=== PATIENT | male | born 1940 | race Caucasian/White ===

== ENCOUNTER → 2017-05-31 | Outpatient (CLI) | payer OTHER, MEDICARE ==
[~2017-05-31] VITALS: Ht 172.7 cm; Wt 72.6 kg
[~2017-05-31] MED LIST: AMLODIPINE BESYL5 MG PO; ASPIR 8181 M1 PO; ATORVASTATIN CA40 MG PO; COZAAR50 MG PO
== END | disposition home or self-care (01) ==
LOC: AMB 08:50
PROC: 0DB38ZZ Excision of Lower Esophagus, Via Natural or Artificial Opening Endoscopic (ICD-10-PCS; principal; 2017-05-31)
DX: C15.5 Malignant neoplasm of lower third of esophagus (principal); K21.9 Gastro-esophageal reflux disease without esophagitis; Z87.891 Personal history of nicotine dependence; E78.5 Hyperlipidemia, unspecified; I10 Essential (primary) hypertension; R01.1 Cardiac murmur, unspecified; N28.1 Cyst of kidney, acquired; Z79.82 Long term (current) use of aspirin
CPT/HCPCS: 88305

== ENCOUNTER → 2017-06-05 | Outpatient (CLI) | payer OTHER, MEDICARE ==
[~2017-06-05] VITALS: Ht 172.7 cm; Wt 72.6 kg
== END | disposition home or self-care (01) ==
LOC: AMB 10:13
DX: C15.9 Malignant neoplasm of esophagus, unspecified (principal); K76.0 Fatty (change of) liver, not elsewhere classified; N28.1 Cyst of kidney, acquired; I25.10 Atherosclerotic heart disease of native coronary artery without angina pectoris; K57.30 Diverticulosis of large intestine without perforation or abscess without bleeding; N40.0 Benign prostatic hyperplasia without lower urinary tract symptoms; R59.0 Localized enlarged lymph nodes; K80.20 Calculus of gallbladder without cholecystitis without obstruction; K21.9 Gastro-esophageal reflux disease without esophagitis; I10 Essential (primary) hypertension; Z87.891 Personal history of nicotine dependence
CPT/HCPCS: 74177

== ENCOUNTER → 2017-06-06 | Outpatient (CLI) | payer OTHER, MEDICARE ==
[~2017-06-06] VITALS: Ht 172.7 cm; Wt 72.6 kg
== END | disposition home or self-care (01) ==
LOC: AMB 13:05
DX: C15.5 Malignant neoplasm of lower third of esophagus (principal); R13.10 Dysphagia, unspecified; K21.9 Gastro-esophageal reflux disease without esophagitis; R63.4 Abnormal weight loss; I10 Essential (primary) hypertension; E78.5 Hyperlipidemia, unspecified; K80.20 Calculus of gallbladder without cholecystitis without obstruction; N28.1 Cyst of kidney, acquired; Z79.82 Long term (current) use of aspirin; Z87.891 Personal history of nicotine dependence; R01.1 Cardiac murmur, unspecified; Z80.6 Family history of leukemia
CPT/HCPCS: 71260; 74360; J0330; J2405; J3010

== ENCOUNTER 2017-07-08 06:58 | Day surgery (SDC) | payer OTHER, MEDICARE ==
[~2017-07-08] VITALS: Ht 172.7 cm; Wt 64.8 kg
[2017-07-08 07:44] VITALS: BP 139/75
[2017-07-08 10:34] VITALS: BP 122/70
[2017-07-08 13:29] VITALS: BP 120/60
== END 2017-07-08 13:36 | disposition home or self-care (01) ==
LOC: SDC 06:58
PROC: 0D958ZX Drainage of Esophagus, Via Natural or Artificial Opening Endoscopic, Diagnostic (ICD-10-PCS; principal; 2017-07-08)
DX: C15.9 Malignant neoplasm of esophagus, unspecified (principal); N28.1 Cyst of kidney, acquired; I10 Essential (primary) hypertension; K21.9 Gastro-esophageal reflux disease without esophagitis; Z87.891 Personal history of nicotine dependence; E78.5 Hyperlipidemia, unspecified; E46 Unspecified protein-calorie malnutrition; Z79.82 Long term (current) use of aspirin; Z80.6 Family history of leukemia
CPT/HCPCS: J2405; J3010

== ENCOUNTER 2017-07-16 09:47 | Inpatient (IN) | payer OTHER, MEDICARE ==
[~2017-07-16] VITALS: Ht 172.7 cm; Wt 59.9 kg
[2017-07-16 12:46] LABS: HEMATOCRIT 35.5 % (38.0-50.0); MCHC 33.8 G/DL (30.0-36.0); MCV 97.5 FL (86-99); MEAN PLAT.VOLUME 10.7 uM^3 (9.0-12.4); PLATELET COUNT 210 K/uL (156-360); RBC DIS.WIDTH-CV 13.6 % (11.8-14.6); RBC DIS.WIDTH-SD 49.1 % (39-53); RED BLOOD COUNT 3.64 M/uL (4.00-5.50); WHITE BLOOD COUNT 12.1 K/uL (4.1-10.2)
[2017-07-16 12:55] LABS: INTER. NORMALIZED RATIO 1.3; PROTHROMBIN TIME 14.5 SEC (10.2-12.9)
[2017-07-16 13:07] LABS: CHLORIDE 109 mEq/L (99-109); POTASSIUM 3.3 mEq/L (3.7-5.4); SODIUM 144 mEq/L (136-147)
[2017-07-16 13:09] LABS: GLUCOSE 79 mg/dL (70-99)
[2017-07-16 13:10] LABS: ANION GAP 11 MEQ/L (2-14)
[2017-07-16 13:11] LABS: TOTAL BILIRUBIN 1.5 mg/dL (0.0-1.0)
[2017-07-16 13:13] LABS: ALKALINE PHOSPHATASE 77 IU/L (3-129); GFR ESTIMATE (CALCULATED) > 59 mL/min/
[2017-07-16 13:14] LABS: UREA NITROGEN (BUN) 21 mg/dL (9-23)
[2017-07-16 14:52] LABS: HDL CHOLESTEROL 32 MG/DL (Desirable>=40); LDL CHOLESTEROL 56 mg/dL (Desirable<100); NON-HDL CHOLESTEROL 73 mg/dL (Desirable<160); TOTAL CHOLESTEROL 105 mg/dL (Desirable<200); TRIGLYCERIDES 86 MG/DL (Normal: <150)
[2017-07-16 17:06] VITALS: BP 144/67
[2017-07-16 23:24] VITALS: BP 140/63
[2017-07-17 07:03] LABS: EOSINOPHIL (%) 3.1 % (0-5); EOSINOPHIL COUNT 0.3 K/uL (0-0.3); HEMATOCRIT 34.3 % (38.0-50.0); IMMATURE GRANULOCYTE (%) 0.6 % (0.0-0.7); IMMATURE GRANULOCYTE COUNT 0.1 K/uL; INSTRUMENT ABS NEUTROPHIL CT 5.7 K/uL; LYMPHOCYTE COUNT 1.7 K/uL (1.0-2.8); MCHC 32.9 G/DL (30.0-36.0); MCV 97.2 FL (86-99); MEAN PLAT.VOLUME 10.5 uM^3 (9.0-12.4); MONOCYTE (%) 8.8 % (3-12); MONOCYTE COUNT 0.8 K/uL (0-0.8); NEUTROPHIL (%) 67.3 % (45-76); NEUTROPHIL COUNT 5.7 K/uL (1.8-6.4); PLATELET COUNT 194 K/uL (156-360); RBC DIS.WIDTH-CV 13.6 % (11.8-14.6); RBC DIS.WIDTH-SD 48.4 % (39-53); RED BLOOD COUNT 3.53 M/uL (4.00-5.50); WHITE BLOOD COUNT 8.5 K/uL (4.1-10.2)
[2017-07-17 07:21] VITALS: BP 129/65
[2017-07-17 07:32] LABS: ALKALINE PHOSPHATASE 62 IU/L (3-129); ANION GAP 8 MEQ/L (2-14); CHLORIDE 102 MEQ/L (99-109); DIRECT BILIRUBIN 0.3 mg/dL (0.0-0.3); GFR ESTIMATE (CALCULATED) > 59 mL/min/; MAGNESIUM 1.6 mg/dl (1.3-2.7); POTASSIUM 3.3 MEQ/L (3.7-5.4); PREALBUMIN 10.7 mg/dL (10-40); SAMPLE HEMOLYSIS CHECK 0; SAMPLE ICTERIC CHECK 0; SAMPLE LIPEMIA CHECK 0; SODIUM 143 MEQ/L (136-147); TOTAL BILIRUBIN 1.5 MG/DL (0.0-1.0); UREA NITROGEN (BUN) 13 mg/dL (9-23)
[2017-07-17 07:39] LABS: GLUCOSE 101 mg/dL (70-99)
[2017-07-17 22:44] VITALS: BP 115/61
[2017-07-18 07:20] LABS: ANION GAP 9 MEQ/L (2-14); CHLORIDE 105 MEQ/L (99-109); GFR ESTIMATE (CALCULATED) > 59 mL/min/; GLUCOSE 116 mg/dL (70-99); MAGNESIUM 1.7 mg/dl (1.3-2.7); POTASSIUM 3.5 MEQ/L (3.7-5.4); SAMPLE HEMOLYSIS CHECK 0; SAMPLE ICTERIC CHECK 0; SAMPLE LIPEMIA CHECK 0; SODIUM 143 MEQ/L (136-147); UREA NITROGEN (BUN) 17 mg/dL (9-23)
[2017-07-18 07:41] VITALS: BP 129/63
[2017-07-18 11:18] VITALS: BP 107/59
[2017-07-18 15:47] VITALS: BP 104/59
[2017-07-19 00:30] VITALS: BP 110/64
[2017-07-19 06:31] LABS: ANION GAP 6 MEQ/L (2-14); CHLORIDE 107 MEQ/L (99-109); GFR ESTIMATE (CALCULATED) > 59 mL/min/; GLUCOSE 106 mg/dL (70-99); POTASSIUM 4.1 MEQ/L (3.7-5.4); SAMPLE HEMOLYSIS CHECK 0; SAMPLE ICTERIC CHECK 0; SAMPLE LIPEMIA CHECK 0; SODIUM 141 MEQ/L (136-147); UREA NITROGEN (BUN) 20 mg/dL (9-23)
[2017-07-19 07:52] VITALS: BP 109/55
== END 2017-07-19 15:27 | disposition home or self-care (01) | DRG 375 ==
LOC: EME 09:47 → EDOF 13:24 → 5EAST 13:24 → EDOF 13:24 → ENRESERV 13:34 → CANRESERV 14:30 → ENRESERV 14:30 → 5EAST 16:21
PROVIDERS: Internal Medicine; Nurse Practitioner Family; Physician Assistant
DX: C15.9 Malignant neoplasm of esophagus, unspecified (principal); R11.0 Nausea; K22.2 Esophageal obstruction; E87.6 Hypokalemia; E44.0 Moderate protein-calorie malnutrition; G89.3 Neoplasm related pain (acute) (chronic); E78.5 Hyperlipidemia, unspecified; D72.829 Elevated white blood cell count, unspecified; I10 Essential (primary) hypertension; R13.10 Dysphagia, unspecified; Z87.891 Personal history of nicotine dependence; Z68.20 Body mass index [BMI] 20.0-20.9, adult; D53.9 Nutritional anemia, unspecified
CPT/HCPCS: 71020; 80048; 80053; 80061; 80076; 83735; 84100; 84134; 84630 90; 85025; 85027; 85610; 85730; 96361; 96365; 96366; 99281; 99284; G0378; G0463 25; J1650; J3480; J7030; J7040; J7050; S0028

== ENCOUNTER 2017-08-05 10:01 | Day surgery (SDC) | payer OTHER, MEDICARE ==
[2017-08-05] MEDS ORDERED: ZOFRAN ODT4 MG PO (10:38)
[2017-08-06] MEDS ORDERED: ASPIRIN81 M2 PO (10:47)
[2017-08-06] MEDS ORDERED: AMLODIPINE BESYL5 MG PO (10:47)
[2017-08-06] MEDS ORDERED: LORAZEPAM0.5 MG PO (10:50)
[2017-08-06] MEDS ORDERED: OXAYDO5 MG PO (10:50)
== END 2017-08-05 12:06 | disposition home or self-care (01) ==
LOC: CATH 10:01
DX: I87.8 Other specified disorders of veins (principal); C15.9 Malignant neoplasm of esophagus, unspecified; Z87.891 Personal history of nicotine dependence
CPT/HCPCS: C1752; C1894; J0690; J1644; J2250; J3010; S0020

== ENCOUNTER → 2017-10-04 | Outpatient (CLI) | payer OTHER, MEDICARE ==
[~2017-10-04] MED LIST changes: +ASPIRIN81 M2 PO; +LORAZEPAM0.5 MG PO; +OXAYDO5 MG PO; +ZOFRAN ODT4 MG PO
== END | disposition home or self-care (01) ==
LOC: AMB 08:51
DX: Z45.2 Encounter for adjustment and management of vascular access device (principal); I87.8 Other specified disorders of veins; Z92.21 Personal history of antineoplastic chemotherapy

== ENCOUNTER → 2017-10-31 | Outpatient (CLI) | payer OTHER, MEDICARE ==
[~2017-10-31] MED LIST changes: +ATIVAN0.5 MG PO; +ZUPLENZ4 MG PO
== END | disposition home or self-care (01) ==
LOC: OPR 10-24 09:00 → EDSTATUS 10-30 10:00 → OPR 10-30 10:00
DX: C78.7 Secondary malignant neoplasm of liver and intrahepatic bile duct (principal); C15.9 Malignant neoplasm of esophagus, unspecified; K21.9 Gastro-esophageal reflux disease without esophagitis; I10 Essential (primary) hypertension; E78.5 Hyperlipidemia, unspecified; Z87.891 Personal history of nicotine dependence
CPT/HCPCS: 77012; 88305; 88341 TC; 88342 TC; J3010

== ENCOUNTER → 2018-02-13 | Outpatient (CLI) | payer OTHER, MEDICARE | END | disposition home or self-care (01) | LOC: AMB 10:51 | PROC: 0DC68ZZ Extirpation of Matter from Stomach, Via Natural or Artificial Opening Endoscopic (ICD-10-PCS; principal; 2018-02-13) | DX: Z46.89 Encounter for fitting and adjustment of other specified devices (principal); Z85.01 Personal history of malignant neoplasm of esophagus; I10 Essential (primary) hypertension; K21.9 Gastro-esophageal reflux disease without esophagitis; E78.5 Hyperlipidemia, unspecified; R01.1 Cardiac murmur, unspecified; Z87.891 Personal history of nicotine dependence; Z79.82 Long term (current) use of aspirin ==

== ENCOUNTER 2018-04-21 14:14 | Inpatient (IN) | payer OTHER, MEDICARE ==
[~2018-04-21] VITALS: Ht 170.2 cm; Wt 72.9 kg
[2018-04-21 15:32] LABS: BASOPHIL (%) 0.2 % (0-1); EOSINOPHIL (%) 0 % (0-5); HEMATOCRIT 37.7 % (38.0-50.0); HEMOGLOBIN 12.3 G/DL (12.5-16.6); IMMATURE GRANULOCYTE (%) 1.2 % (0.0-0.7); LYMPHOCYTE (%) 2.6 % (15-42); LYMPHOCYTE COUNT 0.5 K/uL (1.0-2.8); MCH 31.1 PG (29.0-34.0); MCHC 32.6 G/DL (30.0-36.0); MCV 95.4 FL (86-99); MONOCYTE COUNT 1.4 K/uL (0-0.8); NRBC (%) 0.2 /100 WBC (0-0); RBC DIS.WIDTH-CV 17.2 % (11.8-14.6); RBC DIS.WIDTH-SD 56.8 % (39-53); RED BLOOD COUNT 3.95 M/uL (4.00-5.50); WHITE BLOOD COUNT 20.3 K/uL (4.1-10.2)
[2018-04-21 15:39] LABS: INTER. NORMALIZED RATIO 1.6
[2018-04-21 15:42] LABS: PTT 23.3 SEC (25-37)
[2018-04-21 15:43] LABS: ALBUMIN 2.3 g/dL (3.2-4.8); CHLORIDE 106 mEq/L (99-109); POTASSIUM 4.6 mEq/L (3.7-5.4); SODIUM 140 mEq/L (136-147)
[2018-04-21 15:44] LABS: PLATELET COUNT 122 K/uL (156-360)
[2018-04-21 15:45] LABS: GLUCOSE 115 mg/dL (70-99); TOTAL PROTEIN 5.2 g/dL (6.4-8.3)
[2018-04-21 15:47] LABS: TOTAL BILIRUBIN 0.9 mg/dL (0.0-1.0)
[2018-04-21 15:49] LABS: ALKALINE PHOSPHATASE 470 IU/L (3-129); GFR ESTIMATE (CALCULATED) 48 mL/min/ (58.99-99999)
[2018-04-21 15:50] LABS: UREA NITROGEN (BUN) 45 mg/dL (9-23)
[2018-04-21 15:51] LABS: AST (GOT) 219 IU/L (2-34)
[2018-04-21 15:52] LABS: ALT (GPT) 113 IU/L (3-49)
[2018-04-21 15:56] LABS: CREATININE 1.5 mg/dL (0.6-1.3); TROP-I INTERPRETATION NEGATIVE; TROPONIN-I 0.07 ng/mL (0.0-0.30)
[2018-04-21] MEDS ORDERED: ROXICODONE5 MG PO (18:09)
[2018-04-21 22:18] VITALS: BP 140/72
[2018-04-22 03:40] VITALS: BP 124/78
[2018-04-22 06:50] VITALS: BP 108/70
[2018-04-22 08:37] LABS: HEMATOCRIT 36.7 % (38.0-50.0); HEMOGLOBIN 11.4 G/DL (12.5-16.6); MCH 30.8 PG (29.0-34.0); MCHC 31.1 G/DL (30.0-36.0); MCV 99.2 FL (86-99); NRBC (%) 0.3 /100 WBC (0-0); PLATELET COUNT 117 K/uL (156-360); RBC DIS.WIDTH-CV 17.3 % (11.8-14.6); RBC DIS.WIDTH-SD 59.2 % (39-53); WHITE BLOOD COUNT 21.1 K/uL (4.1-10.2)
[2018-04-22 09:00] LABS: ALBUMIN 1.8 G/DL (3.2-4.8); ALKALINE PHOSPHATASE 376 IU/L (3-129); CHLORIDE 109 MEQ/L (99-109); CREATININE 1.4 MG/DL (0.6-1.3); GFR ESTIMATE (CALCULATED) 52 mL/min/ (58.99-99999); POTASSIUM 4.2 MEQ/L (3.7-5.4); SODIUM 141 MEQ/L (136-147); TOTAL PROTEIN 4.4 G/DL (6.4-8.3); UREA NITROGEN (BUN) 43 mg/dL (9-23)
[2018-04-22 09:05] LABS: ALT (GPT) 137 IU/L (3-49); AST (GOT) 259 IU/L (2-34); GLUCOSE 80 mg/dL (70-99); TOTAL BILIRUBIN 0.9 MG/DL (0.0-1.0)
[2018-04-22 11:05] VITALS: BP 126/73
[2018-04-22 15:11] VITALS: BP 120/66
[2018-04-22 18:21] LABS: APPEARANCE SL.HAZY ((CLEAR)); BILIRUBIN NEGATIVE; BLOOD NEGATIVE; COLOR YELLOW ((YELLOW)); GLUCOSE (STRIP) NEGATIVE; KETONES 5; LEUKOCYTES NEGATIVE; NITRITE NEGATIVE; PROTEIN (STRIP) 30; SPECIFIC GRAVITY 1.041 (1.000-1.030)
[2018-04-22 18:21] LABS: APPEARANCE SL.HAZY ((CLEAR)); BILIRUBIN NEGATIVE; BLOOD NEGATIVE; COLOR YELLOW ((YELLOW)); GLUCOSE (STRIP) NEGATIVE; KETONES 5; LEUKOCYTES NEGATIVE; NITRITE NEGATIVE; PROTEIN (STRIP) 30; SPECIFIC GRAVITY 1.041 (1.000-1.030)
[2018-04-22 18:24] LABS: BACTERIA RARE /HPF; EPITHELIAL CELLS NONE SEEN /HPF; HYALINE CASTS 0-5 /LPF; MUCUS TRACE /LPF; UCUL ADDED? NO; WHITE BLOOD CELLS 0-5 /HPF (0-5)
[2018-04-22 20:00] VITALS: BP 128/84
[2018-04-22 23:58] VITALS: BP 115/77
[2018-04-23 03:37] VITALS: BP 98/66
[2018-04-23 04:09] LABS: CREATININE 1.7 mg/dL (0.6-1.3)
[2018-04-23 07:00] VITALS: BP 110/61
[2018-04-23 11:00] VITALS: BP 100/63
[2018-04-23 15:00] VITALS: BP 102/61
[2018-04-23 19:18] VITALS: BP 101/62
[2018-04-23 21:57] LABS: INTER. NORMALIZED RATIO 1.8
[2018-04-23 22:00] LABS: PTT 69.4 SEC (25-37)
[2018-04-23 23:13] VITALS: BP 106/57
[2018-04-24] VITALS (7 sets, daily range): BP systolic 0–104; BP diastolic 0–61
== END 2018-04-24 18:58 | DRG 175 ==
LOC: EME 14:14 → 5EAST 18:45 → EDOF 18:45 → ENRESERV 18:46 → 5EAST 21:56
PROVIDERS: Emergency Medicine; Hospitalist; Internal Medicine; Internal Medicine Medical Oncology
DX: I26.99 Other pulmonary embolism without acute cor pulmonale (principal); I82.413 Acute embolism and thrombosis of femoral vein, bilateral; I82.443 Acute embolism and thrombosis of tibial vein, bilateral; I82.432 Acute embolism and thrombosis of left popliteal vein; I82.4Z3 Acute embolism and thrombosis of unspecified deep veins of distal lower extremity, bilateral; A41.9 Sepsis, unspecified organism; R65.20 Severe sepsis without septic shock; J18.9 Pneumonia, unspecified organism; N17.9 Acute kidney failure, unspecified; B37.0 Candidal stomatitis; D69.59 Other secondary thrombocytopenia; E46 Unspecified protein-calorie malnutrition; C15.9 Malignant neoplasm of esophagus, unspecified; C78.7 Secondary malignant neoplasm of liver and intrahepatic bile duct; G89.3 Neoplasm related pain (acute) (chronic); Z66 Do not resuscitate; Z51.5 Encounter for palliative care; K21.9 Gastro-esophageal reflux disease without esophagitis; I10 Essential (primary) hypertension; E78.5 Hyperlipidemia, unspecified; D64.9 Anemia, unspecified; Z87.891 Personal history of nicotine dependence
CPT/HCPCS: 70450; 71045; 71275; 76705; 80053; 80202; 81003; 82565; 83605; 84484; 85025; 85027; 85610; 85730; 87040; 93005; 93970; 94799; 99281; 99285; J2270; J2543; J3370; J7030; J7040; J7050